=== PATIENT | female | born 1975 | race Caucasian/White ===

== ENCOUNTER 2022-05-04 15:33 | Emergency (ER) | payer OTHER, SELFPAY ==
[2022-05-04 15:41] VITALS: BP 171/101; PULSE 88; RESP 18; TEMP 36.9; O2SAT 98
--- NOTE | 2022-05-04 15:41 | ED.URI ---
HPI - URI/Sore Throat General Chief Complaint: Upper Respiratory Infection Stated Complaint: fever for over 24 hours, breathing troubles Time Seen by Provider: 05/04/22 15:41 Source: patient and RN notes reviewed Mode of arrival: ambulatory Limitations: no limitations History of Present Illness MD elicited complaint: fever and cough Onset (ago): day(s) (1.5) Consistency: constant Severity: moderate Description of mucous: clear Able to tolerate fluids by mouth: Yes Exacerbating factors: nothing Relieving factors: nothing Context: sick contacts Associated symptoms: fever, chills, myalgias, headache, sore throat, cough and nausea Treatments prior to arrival: cold medicine Related Data Allergies Allergy/AdvReac Type Severity Reaction Status Date / Time No Known Allergies Allergy Verified 05/04/22 15:47 Review of Systems Review of Systems: All systems reviewed & are unremarkable except as noted in HPI and below PMFSH Past Medical History Medical History (Updated 05/04/22 @ 16:54 by Allan Stephens MD) Obesity Surgical History Surgical History (Updated 05/04/22 @ 15:48 by Allan Stephens MD) History of section X 2 Social History Social History (Updated 05/04/22 @ 15:48 by Allan Stephens MD) Smoking packs per day: 0.5 Smoking cigarettes per day: 10.0 Smoking status: Current every day smoker Tobacco type: cigarettes Alcohol intake: current Alcohol use details: rare Substance use: never Exam Const: General: healthy appearing, no acute distress and alert Nutritional Appearance: obese Orientation/consciousness: patient oriented x3 Limitations: no limitations Other: female nurse in room during examination. HENMT: Head: normal to inspection Ears: external ears normal Eyes: Conjunctivae: conjunctivae normal Pupils: Equal, round and reactive pupils present EOM: EOMs intact bilaterally Neck: Neck: normal visual inspection Resp: Effort & Inspection: normal respiratory effort Auscultation: clear to auscultation bilaterally Cardio: Rate: regular rate Rhythm: regular rhythm GI: GI Palp: Yes Soft to palpation and No Tenderness to palpation present (GI) Auscultation: normal bowel sounds Back/Spine/Pelvis: Cervical Spine: cervical ROM normal Thoracic/Lumbar Spine: thoraco-lumbar ROM normal Skin: General skin exam: normal color Rashes: no rashes Neuro: General: patient oriented x3, moves all extremities, no focal motor deficits and CN's II-XI intact bilaterally Speech: normal speech Gait exam (Neuro): Normal gait present Extrem: General: normal to inspection and no clubbing, cyanosis or edema Psych: Mental Status: mental status grossly normal Affect: normal affect Attitude: cooperative Course Vital Signs Vital signs: Vital Signs Temperature 36.9 C 05/04/22 15:41 Pulse Rate 88 05/04/22 15:41 Respiratory Rate 18 05/04/22 15:41 Blood Pressure 171/101 H 05/04/22 15:41 Pulse Oximetry 98 05/04/22 15:41 Temperature 37.8 C H 05/04/22 16:54 Pulse Rate 89 05/04/22 16:54 Respiratory Rate 18 05/04/22 16:54 Blood Pressure 151/92 H 05/04/22 16:54 Pulse Oximetry 98 05/04/22 16:54 Oxygen Delivery Room Air 05/04/22 16:54 MDM - URI/Sore Throat MDM Narrative Medical decision making narrative: I discussed using Tamiflu with the patient. Explained to her the risk and benefits. She declined a prescription of Tamiflu at this time. Differential Diagnosis Differential diagnosis: Likely upper respiratory infection, viral infection, influenza and other (COVID) Lab Data Attestation: I reviewed the patient's lab results. Labs: Lab Results 05/04/22 Range/Units 15:39 Influenza A (RT-PCR) Positive (Negative) Influenza B (RT-PCR) Negative (Negative) SARS-CoV-2 RNA (RT-PCR) Negative (Negative) Discharge Plan Discharge Clinical Impression: Influenza A Patient Disposition: Home, Self-Care Condition: Stable
[2022-05-04 15:50] VITALS: O2SAT 96
[2022-05-04 16:17] VITALS: BP 165/94
[2022-05-04 16:37] LABS: Influenza A QL RT-PCR Positive (Negative); Influenza B QL RT-PCR Negative (Negative); SARS-CoV-2 RNA PCR Negative (Negative)
[2022-05-04 16:54] VITALS: BP 151/92; PULSE 89; RESP 18; TEMP 37.8; O2SAT 98
== END 2022-05-04 17:08 | disposition home or self-care (01) ==
PROVIDERS: Emergency Provider Emergency Medicine
DX: J11.1 Influenza due to unidentified influenza virus with other respiratory manifestations (principal); Z20.822 Contact with and (suspected) exposure to COVID-19
CPT/HCPCS: 87502; 99283; U0003; U0005

== ENCOUNTER 2022-05-08 07:50 | Emergency (ER) | payer OTHER, SELFPAY ==
--- NOTE | ~2022-05-08 | XR_ITS ---
Portable chest x-ray Comparison: None Clinical History: Cough, influenza positive Findings: Lungs are clear, without focal consolidation or pleural effusion. Cardiomediastinal silho uette is unremarkable. Bones and soft tissues are unremarkable. Impression: Normal chest. Reviewed, dictated and finalized at location [] LAYER Impression: Normal chest.
--- NOTE | ~2022-05-08 | CT_ITS ---
CT Abdomen and Pelvis with contrast. History: Abdominal pain. Spiral CT of the abdomen and pelvis was performed after the administration of intravenous contrast. 100 cc of Omnipaque 350 was administered intravenously without complication. Dose reduction technique was used on this scan by utilizing automated exposure control and iterative reconstruction technique . The dose-length product (DLP) was 1368.71 mGy-cm. Findings: Scans through the lung bases demonstrate mild atelectatic change. The liver, pancreas, gallbladder, adrenals and kidneys are within normal limits. Calcified splenic gr anulomas noted. No evidence of aortic aneurysm. No lymphadenopathy is seen. There is no evidence of bowel obstruction. Appendix is dilated to 14 mm, with periappendiceal inflamm atory stranding and appendiculis present. No abscess or free air. Images through the pelvis were performed. Urinary bladder unremarkable. No adnexal mass seen. No asci dilan is seen. Impression: Acute appendicitis, as detailed above. No abscess or free air. Reviewed, dictated and finalized at location [] [facility]ER SERVICE REP Impression: Acute appendicitis, as detailed above. No abscess or free air.
[2022-05-08 08:08] VITALS: BP 161/115; PULSE 97; RESP 20; TEMP 36.6; O2SAT 98
[2022-05-08 08:31] LABS: Basophils Absolute Auto 0.02 K/mm3 (0.00-0.10); Basophils Percent Auto 0.2 % (0.0-1.0); Eosinophils Absolute Auto 0.06 K/mm3 (0.02-0.50); Eosinophils Percent Auto 0.5 % (1.0-6.0); Hematocrit 40.1 % (35.0-49.0); Hemoglobin 13.2 g/dL (12.0-15.0); Immature Granulocyte Absolute 0.05 K/mm3 (0.00-0.00); Immature Granulocyte Percent A 0.4 % (0.0-0.0); Lymphocytes Percent Auto 7.6 % (18.0-42.0); Mean Corpuscular HGB Conc 32.9 g/dL (32.0-36.0); Mean Corpuscular Hemoglobin 25.2 pg (27.0-31.0); Mean Corpuscular Volume 76.5 fL (78.0-102.0); Monocytes Percent Auto 3.8 % (2.0-11.0); Neutrophils Absolute Auto 11.6 K/mm3 (1.7-7.2); Neutrophils Percent Auto 87.5 % (50.0-70.0); Platelet Count Result 217 K/mm3 (150-420); Red Blood Count 5.24 M/mm3 (4.20-5.40); Red Cell Distribution Width 15.4 % (11.6-14.4); White Blood Count 13.2 K/mm3 (4.8-10.8)
[2022-05-08] MEDS: KETOROLAC 30 MG/ML VIAL (*BKC) IV PUSH (08:35)
[2022-05-08] MEDS: ONDANSETRON INJ 4 MG/2 ML VIAL IV PUSH (08:41)
[2022-05-08] MEDS: SODIUM CHLORIDE 0.9% IV 500 ML 999 ML IV CONT ×2 (08:41→10:38)
[2022-05-08 08:46] LABS: Alanine Aminotransferase 21 U/L (14-59); Albumin Level 3.4 g/dL (3.4-5.0); Alkaline Phosphatase 97 U/L (46-116); Anion Gap 12 mmol/L (8-16); Aspartate Amino Transferase 11 U/L (15-37); Bilirubin,Total 0.5 mg/dL (0.00-1.00); Blood Urea Nitrogen 14 mg/dL (7-18); Calcium 8.6 mg/dL (8.5-10.1); Carbon Dioxide 23 mmol/L (21-32); Chloride 100 mmol/L (98-108); Estimated CRCL calculation 91 ml/min; Estimated Glomerular Filt Rate > 60; Glucose 108 mg/dL (70-99); Osmolality Calculated 281 mOsm/kg (285-295); Potassium 3.6 mmol/L (3.5-5.1); Sodium 135 mmol/L (136-145); Total Protein 7.5 g/dL (6.4-8.2)
[2022-05-08 09:02] LABS: Add Urine Microscopic? YES; Appearance Urine Clear (Clear); Bilirubin Urine 1+ (Negative); Blood Urine 1+ (Negative); Color Urine Yellow (Yellow); Glucose Urine UA Negative (Negative); Ketones Urine 1+ (Negative); Leukocyte Esterase Ur Negative LEU/UL (Negative); Nitrate Urine Negative (Negative); Protein Urine 1+ (Negative); Specific Grav Ur >= 1.030 (1.010-1.020); Urobilinogen Urine 0.2 mg/dL (0.2-1.0)
[2022-05-08 09:09] LABS: Bacteria Urine Trace /hpf; Mucus Urine Few /lpf; RBC Urine 0-2 /hpf (0-2); Squamous Epithelial Cell Urine Few /hpf (Few); Urine Pregnancy Test Negative; WBC Urine None seen /hpf (0-3)
[2022-05-08 09:10] LABS: Pregnancy On Board Control Positive
--- NOTE | 2022-05-08 09:14 | ED.ABDPAIN ---
HPI - Abdominal Pain General Chief Complaint: Abdominal Pain Stated Complaint: flu Time Seen by Provider: 05/08/22 08:00 Source: patient Mode of arrival: ambulatory Limitations: no limitations History of Present Illness HPI narrative: This is a 46-year-old female that presents with abdominal pain, was recently diagnosed with influenza approximately 5 days ago, currently there is no fever chills there is no shortness of breath does have abdominal pain diffuse that she rates at about 10/10 that started yesterday and has intensified over the last 24hours, no chest pain no dysuria no flank pain. Patient also has nausea with no diarrhea or constipation. MD elicited complaint: abdominal pain Onset (ago): day(s) Pain Consistency: constant Severity: severe Pain scale (0-10): 10 Quality: stabbing Related Data Allergies Allergy/AdvReac Type Severity Reaction Status Date / Time No Known Allergies Allergy Verified 05/08/22 08:52 Review of Systems Review of Systems: All systems reviewed & are unremarkable except as noted in HPI and below PMFSH Past Medical History Medical History Obesity Surgical History Surgical History History of section X 2 Social History Social History Smoking packs per day: 0.5 Smoking cigarettes per day: 10.0 Smoking status: Current every day smoker Tobacco type: cigarettes Alcohol intake: current Alcohol use details: rare Substance use: never Exam Const: General: healthy appearing Nutritional Appearance: well nourished Orientation/consciousness: patient oriented x3 Limitations: no limitations HENMT: Head: normal to inspection Face/Nose/Sinus: Normal external nose present Face and sinus: normal facial exam Mouth: Yes Normal oral and palatal mucosa present Eyes: Conjunctivae: conjunctivae normal Pupils: Equal, round and reactive pupils present EOM: EOMs intact bilaterally Neck: Neck: normal visual inspection Chest: Chest palpation & inspection: normal inspection of the chest Resp: Effort & Inspection: normal respiratory effort Auscultation: clear to auscultation bilaterally Cardio: Rate: regular rate Rhythm: regular rhythm GI: GI Palp: Yes Soft to palpation and Yes Tenderness to palpation present (GI) Auscultation: normal bowel sounds : General: Yes bladder normal to palpation Skin: General skin exam: normal color Rashes: no rashes Wounds: no wounds Neuro: General: patient oriented x3, moves all extremities, no meningeal signs and no focal motor deficits Extrem: General: normal to inspection, no clubbing, cyanosis or edema and no pedal edema Psych: Mental Status: mental status grossly normal Affect: normal affect Course Course Emergency Course: Labs reviewed with patient, CT scan and chest x-ray reviewed. Patient received Toradol and Zofran. patient received IV antibiotics ceftriaxone and metronidazole, spoke with [facility] and accepting physician is Dr. Mcghee Vital Signs Vital signs: Vital Signs Temperature 36.6 C 05/08/22 08:08 Pulse Rate 97 05/08/22 08:08 Respiratory Rate 20 05/08/22 08:08 Blood Pressure 161/115 H 05/08/22 08:08 Pulse Oximetry 98 05/08/22 08:08 Oxygen Delivery Room Air 05/08/22 08:08 Temperature 36.6 C 05/08/22 08:08 Pulse Rate 97 05/08/22 08:08 Respiratory Rate 20 05/08/22 08:08 Blood Pressure 161/115 H 05/08/22 08:08 Pulse Oximetry 98 05/08/22 08:08 Oxygen Delivery Room Air 05/08/22 08:08 MDM - Abdominal Pain Lab Data 05/08/22 08:24 05/08/22 08:24 Labs: Lab Results 05/08/22 05/08/22 05/08/22 Range/Units 08:01 08:24 08:24 WBC 13.2 H (4.8-10.8) K/mm3 RBC 5.24 (4.20-5.40) M/mm3 Hgb 13.2 (12.0-15.0) g/dL Hct 40.1 (35.0-49.0) % MCV
[2022-05-08 10:00] VITALS: BP 156/98; PULSE 88; RESP 20; O2SAT 98
[2022-05-08 10:37] LABS: SARS-CoV-2 Ag Negative (Negative)
[2022-05-08] MEDS: metroNIDAZOLE 500 MG/ISO 100ML 500 MG/100 ML BAG 100 MG IVPB (10:43)
[2022-05-08 12:17] VITALS: BP 152/96; PULSE 82; TEMP 37.1; O2SAT 98
[2022-05-08] MEDS: MORPHINE SULFATE (*CRX) 4 MG/ML INJ IM (13:00)
[2022-05-08 13:24] VITALS: BP 150/94; PULSE 83; RESP 20; TEMP 37.1; O2SAT 98
--- NOTE | 2022-05-14 12:53 | PC.NURSE ---
BLOOD CULTURES X 2 FINAL RESULTS: NO GROWTH AFTER 5 DAYS. NO ACTION NEEDED.
== END 2022-05-08 13:24 | disposition short-term general hospital (02) ==
PROVIDERS: Emergency Provider Emergency Medicine
DX: K35.80 Unspecified acute appendicitis (principal); F17.210 Nicotine dependence, cigarettes, uncomplicated; Z20.822 Contact with and (suspected) exposure to COVID-19
CPT/HCPCS: 36415; 71045; 74177; 80053; 81001; 81025; 85025; 87040; 87426; 96361; 96365; 96367; 96372; 96375; 99285; C9803; J0696; J1885; J2270; J2405; J7040; Q9967